=== PATIENT | male | born 2000 | race Caucasian/White ===

== ENCOUNTER 2019-01-27 19:32 | Emergency (ER) | payer MEDICAID ==
--- NOTE | 2019-01-27 19:52 | ERPHSYRPT ---
- History of Present Illness Time Seen by Provider: 01/27/19 19:50 Historian: patient, family Exam Limitations: no limitations Physician History: 19 y/o white male presents with 2 day h/o worsening runny nose, congestion, cough and sore throat. denies cp, denies n/v and abd pain. pt did have loose stools yesterday. sig other had similar sx last week. felt chills but did not measure temperature Timing/Duration: day(s) (2) Activities at Onset: none Severity of Pain-Max: mild Severity of Pain-Current: mild Modifying Factors: Improves With: coughing Associated Symptoms: diarrhea, fever/chills (chills), weakness (mild), No chest pain, No loss of appetite, No nausea, No shortness of breath, No vomiting Previous symptoms: no prior history Allergies/Adverse Reactions: Penicillins Allergy (Mild, Verified 04/25/16 09:40) Hives Home Medications: No Home Meds [No Home Meds] 1 ea UD 04/25/16 [History] Hx Tetanus, Diphtheria Vaccination/Date Given: Yes Hx Influenza Vaccination/Date Given: No Hx Pneumococcal Vaccination/Date Given: No - Review of Systems Constitutional: Chills Eyes: No Symptoms Ears, Nose, & Throat: No Symptoms Respiratory: Cough Cardiac: No Symptoms Abdominal/Gastrointestinal: No Symptoms Genitourinary Symptoms: No Symptoms Musculoskeletal: No Symptoms Skin: No Symptoms Neurological: No Symptoms Psychological: No Symptoms Endocrine: No Symptoms Hematologic/Lymphatic: No Symptoms Immunological/Allergic: No Symptoms All Other Systems: Reviewed and Negative - Past Medical History Pertinent Past Medical History: Yes Neurological History: No Pertinent History ENT History: No Pertinent History Cardiac History: No Pertinent History Respiratory History: No Pertinent History Endocrine Medical History: No Pertinent History Musculoskeletal History: No Pertinent History GI Medical History: No Pertinent History History: No Pertinent History Psycho-Social History: Other Male Reproductive Disorders: No Pertinent History Other Medical History: ADHD - Past Surgical History Past Surgical History: No Neuro Surgical History: No Pertinent History Cardiac: No Pertinent History Respiratory: No Pertinent History Gastrointestinal: No Pertinent History Genitourinary: No Pertinent History Musculoskeletal: No Pertinent History Male Surgical History: No Pertinent History Other Surgical History: toe nail removed - Social History Smoking Status: Current some day smoker Exposure to second hand smoke: Yes Drug Use: none Patient Lives Alone: No - Nursing Vital Signs Nursing Vital Signs: Initial Vital Signs Temperature 98.6 F 01/27/19 19:43 Pulse Rate 98 H 01/27/19 19:43 Respiratory Rate 18 01/27/19 19:43 Blood Pressure 134/80 01/27/19 19:43 O2 Sat by Pulse Oximetry 100 01/27/19 19:43 Pain Scale Pain Intensity 7 - Physical Exam General Appearance: no apparent distress, alert, anxiety Eye Exam: PERRL/EOMI Ears, Nose, Throat Exam: TMs normal, moist mucous membranes, pharyngeal erythema (mild) Neck Exam: normal inspection, non-tender, supple, full range of motion Respiratory Exam: normal breath sounds, lungs clear, airway intact, No chest tenderness, No respiratory distress Cardiovascular Exam: regular rate/rhythm, normal heart sounds, normal peripheral pulses Gastrointestinal/Abdomen Exam: No tenderness Rectal Exam: not done Back Exam: normal inspection, normal range of motion, No CVA tenderness, No vertebral tenderness Extremity Exam: normal inspection, normal range of motion, pelvis stable Neurologic Exam: alert, oriented x 3, cooperative, senior analyst developer II-XII nml as tested Skin Exam: normal color, warm, dry Lymphatic Exam: No adenopathy SpO2 Interpretation: normal O2 Delivery: Room Air - Course Nursing assessment & vital signs reviewed: Yes Ordered Tests: Medication Summary Discontinued Medications Generic Name Dose Route Start Last Admin Trade Name Allq PRN Reason Stop Dose Admin Ondansetron HCl 4 mg 01/27/19 19:53 01/27/19 20:00 Zofran Odt 4 Mg PO 01/27/19 19:54 4 mg STAT ONE Administration Ondansetron HCl Confirm 01/27/19 19:59 Zofran Odt 4 Mg Administered 01/27/19 20:00 Dose 4 mg .ROUTE .STK-MED ONE Lab/Rad Data: Laboratory Results 01/27/19 Range/Units 20:20 Influenza Type A Ag NEGATIVE (NEGATIVE) Influenza Type B Ag NEGATIVE (NEGATIVE) RSV (PCR) NEGATIVE (Negative) - Progress Progress: unchanged Progress Note: 01/27/19 21:02 xray right knee-no acute fx or dislocation Counseled pt/family regarding: diagnosis, need for follow-up, rad results - Departure Departure Disposition: Home Clinical Impression: Right knee sprain Condition: Stable Critical Care Time: No Referrals: DOCTOR,NO FAMILY [Primary Care Provider] - [facility]THO - [facility] [NON-STAFF PHY W/O PRIVILEGES] - [facility]-Ortho M-F [id number] (right knee pain for 3 weeks. negative plain film xray) Additional Instructions: follow up at [facility] at 0800 tomorrow morning for further management
[2019-01-27] MEDS ORDERED: ZOFRAN ODT 4 MG PO ONE (19:53)
[2019-01-27 19:55] VITALS: O2SAT 100
[2019-01-27] MEDS ORDERED: ZOFRAN ODT 4 MG ONE (19:59)
[2019-01-27 20:50] LABS: INFLUENZA A NEGATIVE (NEGATIVE); INFLUENZA B NEGATIVE (NEGATIVE); RESPIRATORY SYNCTIAL VIRUS NEGATIVE (Negative)
[2019-01-27] MEDS ORDERED: PERCOCET TABLET 5/325MG PO STA (21:08)
[2019-01-27] MEDS ORDERED: NORCO 5/325 MG PO ONE (21:09)
[2019-01-27 21:17] VITALS: BP 128/76; PULSE 75
[2019-01-27] MEDS ORDERED: HYDROCODONE-ACETAMIN 2.5-108/5 ML SOLUTION PO STA (21:31)
[2019-01-27] MEDS ORDERED: DELTASONE 10 MG PO ONE (21:31)
[2019-01-27] MEDS ORDERED: Zithromax 250 MG TABLET PO ONE (21:31)
[2019-01-27] MEDS ORDERED: HYDROCODONE-ACETAMIN 2.5-108/5 ML SOLUTION ONE (21:36)
[2019-01-27] MEDS ORDERED: Zithromax 250 MG TABLET ONE (21:36)
[2019-01-27] MEDS ORDERED: DELTASONE 20 MG ONE (21:36)
== END 2019-01-27 21:56 | disposition home or self-care (01) ==
LOC: ED 19:32
DX: J40 Bronchitis, not specified as acute or chronic (principal)
CPT/HCPCS: 87631; 99284; Q0162; A9270-GY

== ENCOUNTER 2019-03-13 17:53 | Emergency (ER) | payer MEDICAID ==
--- NOTE | 2019-03-13 18:16 | ERPHSYRPT ---
- History of Present Illness Time Seen by Provider: 03/13/19 18:16 Source: patient, family Exam Limitations: no limitations Patient Subjective Stated Complaint: states sore throat and cough for two days. Triage Nursing Assessment: ambulated to room per self. skin w/d, color normal, resp easy. occasional dry cough noted. Physician History: 19 y/o white male smoker of cigarettes presents with 2 day h/o sore throat and productive cough. pt denies fever. pt states he is allergic to pcn but has had keflex in the past without issues per his spouse. had a single episode of diarrhea yesterday none today. pt denies cp, denies soa, denies abd pain Timing/Duration: day(s) Cough Quality/Degree: productive cough (brownish green sputum) Possible Cause: occasional episodes Modifying Factors: Improves With: coughing Associated Symptoms: cough, No fever, No chills, No chest pain/soreness Allergies/Adverse Reactions: Penicillins Allergy (Mild, Verified 03/13/19 18:06) Hives Home Medications: Albuterol Sulfate [Albuterol Sulfate Hfa] 7 gm IH UD 03/13/19 [History] Hx Tetanus, Diphtheria Vaccination/Date Given: No Hx Influenza Vaccination/Date Given: No Hx Pneumococcal Vaccination/Date Given: No - Review of Systems Constitutional: No Symptoms Eyes: No Symptoms Ears, Nose, & Throat: No Symptoms Respiratory: Cough, No Dyspnea, No Stridor, No Wheezing Cardiac: No Symptoms Abdominal/Gastrointestinal: No Symptoms Genitourinary Symptoms: No Symptoms Musculoskeletal: No Symptoms Skin: No Symptoms Neurological: No Symptoms Psychological: No Symptoms Endocrine: No Symptoms Hematologic/Lymphatic: No Symptoms Immunological/Allergic: No Symptoms All Other Systems: Reviewed and Negative - Past Medical History Pertinent Past Medical History: Yes Neurological History: No Pertinent History ENT History: No Pertinent History Cardiac History: No Pertinent History Respiratory History: Asthma Endocrine Medical History: No Pertinent History Musculoskeletal History: No Pertinent History GI Medical History: No Pertinent History History: No Pertinent History Psycho-Social History: Other Male Reproductive Disorders: No Pertinent History Other Medical History: ADHD - Past Surgical History Past Surgical History: Yes Neuro Surgical History: No Pertinent History Cardiac: No Pertinent History Respiratory: No Pertinent History Gastrointestinal: No Pertinent History Genitourinary: No Pertinent History Musculoskeletal: No Pertinent History Male Surgical History: No Pertinent History Other Surgical History: toe nail removed - Social History Smoking Status: Current every day smoker How long have you smoked: 7 Exposure to second hand smoke: Yes Drug Use: none Patient Lives Alone: No - Nursing Vital Signs Nursing Vital Signs: Initial Vital Signs Temperature 98.3 F 03/13/19 18:01 Pulse Rate 103 H 03/13/19 18:01 Respiratory Rate 16 03/13/19 18:01 Blood Pressure 148/81 03/13/19 18:01 O2 Sat by Pulse Oximetry 99 03/13/19 18:01 Pain Scale Pain Intensity 6 - Physical Exam General Appearance: no apparent distress, alert, anxiety Eye Exam: PERRL/EOMI, eyes nml inspection Ears, Nose, Throat Exam: normal ENT inspection, moist mucous membranes Neck Exam: normal inspection, non-tender, supple, full range of motion Respiratory Exam: normal breath sounds, lungs clear, airway intact, No chest tenderness, No respiratory distress Cardiovascular Exam: regular rate/rhythm, normal heart sounds, normal peripheral pulses Gastrointestinal/Abdomen Exam: soft, normal bowel sounds, No tenderness Rectal Exam: not done Back Exam: normal inspection, normal range of motion, No CVA tenderness Extremity Exam: normal inspection, normal range of motion, pelvis stable Neurologic Exam: alert, oriented x 3, cooperative, service station attendant II-XII nml as tested Skin Exam: normal color, warm, dry Lymphatic Exam: No adenopathy SpO2 Interpretation: normal SpO2: 99 O2 Delivery: Room Air - Course Nursing assessment & vital signs reviewed: Yes EKG Interpreted by Me: RATE (94), Sinus Rhythm, NORMAL AXIS, NORMAL INTERVALS, NORMAL QRS, Other (no acute changes. no changes from comparison ekg dated ) Ordered Tests: Medication Summary Discontinued Medications Generic Name Dose Route Start Last Admin Trade Name Allq PRN Reason Stop Dose Admin Hydrocodone Bitart/Acetaminophen 10 ml 03/13/19 18:53 Hydrocodone-Acetamin 2.5-108/5 Ml Solution PO 03/13/19 18:54 STAT STA Hydrocodone Bitart/Acetaminophen Confirm 03/13/19 19:07 Hydrocodone-Acetamin 2.5-108/5 Ml Solution Administered 03/13/19 19:08 Dose 10 ml .ROUTE .STK-MED ONE Ceftriaxone Sodium 1,000 mg 03/13/19 18:52 Rocephin 1000 Mg Inj IM 03/13/19 18:53 STAT ONE Ceftriaxone Sodium Confirm 03/13/19 19:07 Rocephin 1000 Mg Inj Administered 03/13/19 19:08 Dose 1,000 mg .ROUTE .STK-MED ONE Lidocaine HCl Confirm 03/13/19 19:07 Xylocaine 1% Hcl 20 Ml Mdv Administered 03/13/19 19:08 Dose 3 ml .ROUTE .STK-MED ONE Methylprednisolone Sodium Succinate 125 mg 03/13/19 18:52 Solu-Medrol 125 Mg IM 03/13/19 18:53 STAT ONE Methylprednisolone Sodium Succinate Confirm 03/13/19 19:07 Solu-Medrol 125 Mg Administered 03/13/19 19:08 Dose 125 mg .ROUTE .STK-MED ONE Lab/Rad Data: Laboratory Results 03/13/19 Range/Units Unknown Influenza Type A Ag NEGATIVE (NEGATIVE) Influenza Type B Ag NEGATIVE (NEGATIVE) RSV (PCR) NEGATIVE (Negative) Group A Strep Antibody NEGATIVE (NEGATIVE) - Progress Progress: improved Air Movement: good Blood Culture(s) Obtained: No Antibiotics given: Yes Counseled pt/family regarding: lab results, diagnosis, need for follow-up - Departure Departure Disposition: Home Clinical Impression: Bronchitis Condition: Stable Critical Care Time: No Referrals: DOCTOR,NO FAMILY [Primary Care Provider] - Additional Instructions: avoid exposure to smoke of any kind. drink plenty of fluids. Prescriptions: Azithromycin 250 mg [Zithromax 250 MG TABLET] 250 mg PO ZPACK #6 tablet Hydrocodone Bit/Acetaminophen [Hydrocodone-Acetaminophen Soln] 10 ml PO Q8H #60 ml Prednisone 10 mg [Deltasone 10 mg] 10 mg PO TID #6 tablet
[2019-03-13] MEDS ORDERED: Rocephin 1000 MG INJ IM ONE (18:52)
[2019-03-13] MEDS ORDERED: solu-MEDROL 125 MG IM ONE (18:52)
[2019-03-13] MEDS ORDERED: HYDROCODONE-ACETAMIN 2.5-108/5 ML SOLUTION PO STA (18:53)
[2019-03-13] MEDS ORDERED: XYLOCAINE 1% HCL 20 ML MDV ONE (19:07)
[2019-03-13] MEDS ORDERED: solu-MEDROL 125 MG ONE (19:07)
[2019-03-13] MEDS ORDERED: HYDROCODONE-ACETAMIN 2.5-108/5 ML SOLUTION ONE (19:07)
[2019-03-13] MEDS ORDERED: Rocephin 1000 MG INJ ONE (19:07)
[2019-03-13 19:13] LABS: Group A Strep NEGATIVE (NEGATIVE); INFLUENZA A NEGATIVE (NEGATIVE); INFLUENZA B NEGATIVE (NEGATIVE); RESPIRATORY SYNCTIAL VIRUS NEGATIVE (Negative)
[2019-03-13 19:19] VITALS: O2SAT 99
[2019-03-13 19:25] VITALS: BP 122/73; PULSE 85
== END 2019-03-13 19:33 | disposition home or self-care (01) ==
LOC: ED 17:53
DX: J40 Bronchitis, not specified as acute or chronic (principal)
CPT/HCPCS: 87631; 87651; 96372; 99284; J0696; J2930; A9270-GY

== ENCOUNTER 2019-04-13 18:45 | Emergency (ER) | payer MEDICAID ==
--- NOTE | 2019-04-13 18:55 | ERPHSYRPT ---
- History of Present Illness Time Seen by Provider: 04/13/19 18:55 Historian: patient Exam Limitations: no limitations Physician History: 19 y/o white male presents with intermittent ruq abd pain. has associated n/v and worsening pain today. pt states seems to be related to food intake. no cp, no fevers, no back pain Timing/Duration: week(s), intermittent Quality: aching Abdominal Pain Onset Location: RUQ Pain Radiation: no radiation Severity of Pain-Max: mild Severity of Pain-Current: mild Modifying Factors: Improves With: eating Associated Symptoms: nausea, No diarrhea, No fever/chills, No loss of appetite, No neck pain, No vomiting Previous symptoms: same symptoms as today Allergies/Adverse Reactions: Penicillins Allergy (Mild, Verified 04/13/19 18:56) Hives Hx Tetanus, Diphtheria Vaccination/Date Given: No Hx Influenza Vaccination/Date Given: No Hx Pneumococcal Vaccination/Date Given: No - Review of Systems Constitutional: No Symptoms Eyes: No Symptoms Ears, Nose, & Throat: No Symptoms Respiratory: No Symptoms Cardiac: No Symptoms Abdominal/Gastrointestinal: Abdominal Pain, Nausea, No Vomiting, No Diarrhea Genitourinary Symptoms: No Symptoms Musculoskeletal: No Symptoms Skin: No Symptoms Neurological: No Symptoms Psychological: No Symptoms Endocrine: No Symptoms Hematologic/Lymphatic: No Symptoms Immunological/Allergic: No Symptoms All Other Systems: Reviewed and Negative - Past Medical History Pertinent Past Medical History: Yes Neurological History: No Pertinent History ENT History: No Pertinent History Cardiac History: No Pertinent History Respiratory History: Asthma Endocrine Medical History: No Pertinent History Musculoskeletal History: No Pertinent History GI Medical History: No Pertinent History History: No Pertinent History Psycho-Social History: Other Male Reproductive Disorders: No Pertinent History Other Medical History: ADHD - Past Surgical History Past Surgical History: Yes Neuro Surgical History: No Pertinent History Cardiac: No Pertinent History Respiratory: No Pertinent History Gastrointestinal: No Pertinent History Genitourinary: No Pertinent History Musculoskeletal: No Pertinent History Male Surgical History: No Pertinent History Other Surgical History: toe nail removed - Social History Smoking Status: Current every day smoker How long have you smoked: 7 Exposure to second hand smoke: Yes Drug Use: none Patient Lives Alone: No - Nursing Vital Signs Nursing Vital Signs: Initial Vital Signs Temperature 98.0 F 04/13/19 18:57 Pulse Rate 101 H 04/13/19 18:57 Respiratory Rate 18 04/13/19 18:57 Blood Pressure 133/84 04/13/19 18:57 O2 Sat by Pulse Oximetry 99 04/13/19 18:57 Pain Scale Pain Intensity 8 - Physical Exam General Appearance: no apparent distress, alert, anxiety Eye Exam: PERRL/EOMI, eyes nml inspection Ears, Nose, Throat Exam: normal ENT inspection, moist mucous membranes Neck Exam: normal inspection, non-tender, supple, full range of motion Respiratory Exam: normal breath sounds, lungs clear, airway intact, No chest tenderness, No respiratory distress Cardiovascular Exam: regular rate/rhythm, normal heart sounds, normal peripheral pulses Gastrointestinal/Abdomen Exam: soft, normal bowel sounds, tenderness (mild ruq) , No guarding Rectal Exam: not done Neurologic Exam: alert, oriented x 3, cooperative, investigator vice II-XII nml as tested Skin Exam: normal color, warm, dry Lymphatic Exam: No adenopathy SpO2 Interpretation: normal O2 Delivery: Room Air - Course Nursing assessment & vital signs reviewed: Yes Ordered Tests: Active Orders 24 hr Category Date Time Status IV Insertion STAT Care 04/13/19 19:04 Active AMYLASE Stat Lab 04/13/19 19:10 Completed CBC W DIFF Stat Lab 04/13/19 19:10 Completed CMP Stat Lab 04/13/19 19:10 Completed LIPASE Stat Lab 04/13/19 19:10 Completed Lactic Acid Stat Lab 04/13/19 19:40 Completed UA W/RFX UR CULTURE Stat Lab 04/13/19 19:26 Completed Medication Summary Generic Name Dose Route Start Last Admin Trade Name Freq PRN Reason Stop Dose Admin Sodium Chloride 1,000 mls @ 999 mls/hr 04/13/19 19:04 04/13/19 19:15 Sodium Chloride 0.9% 1000 Ml IV 04/13/19 20:04 999 mls/hr .[id number] STA Administration Discontinued Medications Generic Name Dose Route Start Last Admin Trade Name Freq PRN Reason Stop Dose Admin Sodium Chloride Confirm 04/13/19 19:13 Sodium Chloride 0.9% 1000 Ml Administered 04/13/19 19:14 Dose 1,000 mls @ ud .ROUTE .STK-MED ONE Ondansetron HCl 4 mg 04/13/19 19:04 04/13/19 19:15 Zofran 4 Mg/2 Ml Vial IV 04/13/19 19:05 4 mg STAT ONE Administration Ondansetron HCl Confirm 04/13/19 19:13 Zofran 4 Mg/2 Ml Vial Administered 04/13/19 19:14 Dose 4 mg .ROUTE .STK-MED ONE Lab/Rad Data: Laboratory Result Diagrams 04/13/19 19:10 04/13/19 19:10 Laboratory Results 04/13/19 04/13/19 04/13/19 Range/Units 19:40 19:26 19:10 WBC (4.0-10.5) K/mm3 RBC (4.1-5.6) M/mm3 Hgb (12.5-18.0) gm/dl Hct (42-50) % MCV (78-100) fl MCH (26-32) pg MCHC (32-36) g/dl RDW (11.5-14.0) % Plt Count (150-450) K/mm3 MPV (6-9.5) fl Gran % (36.0-66.0) % Eos # (Auto) (0-0.5) Absolute Lymphs (auto) (1.0-4.6) Absolute Monos (auto) (0.0-1.3) Lymphocytes % (24.0-44.0) % Monocytes % (0.0-12.0) % Eosinophils % (0.00-5.0) % Basophils % (0.0-0.4) % Absolute Granulocytes (1.4-6.9) Basophils # (0-0.4) Sodium 141 (137-145) mmol/L Potassium 3.4 L (3.5-5.1) mmol/L Chloride 104 (98-107) mmol/L Carbon Dioxide 30 (22-30) mmol/L Anion Gap 9.9 (5-15) MEQ/L BUN 15 (9-20) mg/dL Creatinine 0.90 (0.66-1.25) mg/dL Estimated GFR > 60.0 ML/MIN Glucose 106 (74-106) mg/dL Lactic Acid 0.8 (0.4-2.0) Calcium 9.6 (8.4-10.2) mg/dL Total Bilirubin 0.40 (0.2-1.3) mg/dL AST 33 (17-59) U/L ALT 29 (0-50) U/L Alkaline Phosphatase 86 (38-126) U/L Serum Total Protein 7.4 (6.3-8.2) g/dL Albumin 4.4 (3.5-5.0) g/dL Amylase 70 (30-110) U/L Lipase 21 L (23-300) U/L Urine Color YELLOW (YELLOW) Urine Appearance CLEAR (CLEAR) Urine pH 6.0 (5-6) Ur Specific Byron 1.028 (1.005-1.025) Urine Protein NEGATIVE (Negative) Urine Ketones NEGATIVE (NEGATIVE) Urine Blood NEGATIVE (0-5) Sin/ul Urine Nitrite NEGATIVE (NEGATIVE) Urine Bilirubin NEGATIVE (NEGATIVE) Urine Urobilinogen 4 (0-1) mg/dL Ur Leukocyte Esterase NEGATIVE (NEGATIVE) Urine WBC (Auto) NONE (0-5) /HPF Urine RBC (Auto) NONE (0-2) /HPF U Epithel Cells (Auto) NONE (FEW) /HPF Urine Bacteria (Auto) NONE SEEN (NEGATIVE) /HPF Urine Mucus (Auto) SLIGHT (NEGATIVE) /HPF Urine Culture Reflexed NO (NO) Urine Glucose NEGATIVE (NEGATIVE) mg/dL 04/13/19 Range/Units 19:10 WBC 5.2 (4.0-10.5) K/mm3 RBC 4.58 (4.1-5.6) M/mm3 Hgb 15.4 (12.5-18.0) gm/dl Hct 43.6 (42-50) % MCV 95.2 (78-100) fl MCH 33.6 H (26-32) pg MCHC 35.3 (32-36) g/dl RDW 12.4 (11.5-14.0) % Plt Count 219 (150-450) K/mm3 MPV 8.6 (6-9.5) fl Gran % 39.6 (36.0-66.0) % Eos # (Auto) 0.24 (0-0.5) Absolute Lymphs (auto) 2.37 (1.0-4.6) Absolute Monos (auto) 0.52 (0.0-1.3) Lymphocytes % 45.4 H (24.0-44.0) % Monocytes % 10.0 (0.0-12.0) % Eosinophils % 4.6 (0.00-5.0) % Basophils % 0.4 (0.0-0.4) % Absolute Granulocytes 2.07 (1.4-6.9) Basophils # 0.02 (0-0.4) Sodium (137-145) mmol/L Potassium (3.5-5.1) mmol/L Chloride (98-107) mmol/L Carbon Dioxide (22-30) mmol/L Anion Gap (5-15) MEQ/L BUN (9-20) mg/dL Creatinine (0.66-1.25) mg/dL Estimated GFR ML/MIN Glucose (74-106) mg/dL Lactic Acid (0.4-2.0) Calcium (8.4-10.2) mg/dL Total Bilirubin (0.2-1.3) mg/dL AST (17-59) U/L ALT (0-50) U/L Alkaline Phosphatase (38-126) U/L Serum Total Protein (6.3-8.2) g/dL Albumin (3.5-5.0) g/dL Amylase (30-110) U/L Lipase (23-300) U/L Urine Color (YELLOW) Urine Appearance (CLEAR) Urine pH (5-6) Ur Specific Byron (1.005-1.025) Urine Protein (Negative) Urine Ketones (NEGATIVE) Urine Blood (0-5) Sin/ul Urine Nitrite (NEGATIVE) Urine Bilirubin (NEGATIVE) Urine Urobilinogen (0-1) mg/dL Ur Leukocyte Esterase (NEGATIVE) Urine WBC (Auto) (0-5) /HPF Urine RBC (Auto) (0-2) /HPF U Epithel Cells (Auto) (FEW) /HPF Urine Bacteria (Auto) (NEGATIVE) /HPF Urine Mucus (Auto) (NEGATIVE) /HPF Urine Culture Reflexed (NO) Urine Glucose (NEGATIVE) mg/dL - Progress Progress: improved Counseled pt/family regarding: lab results, diagnosis, need for follow-up - Departure Departure Disposition: Home Clinical Impression: RUQ abdominal pain Condition: Stable Critical Care Time: No Referrals: DOCTOR,NO FAMILY [Primary Care Provider] - Additional Instructions: drink plenty of fluids. avoid fatty, greasy spicy foods. follow up with primary doctor for further management
[2019-04-13] MEDS ORDERED: Sodium Chloride 0.9% 1000 ML 1,000 ML IV STA (19:04)
[2019-04-13] MEDS ORDERED: Zofran 4 MG/2 ML VIAL IV ONE (19:04)
[2019-04-13] MEDS ORDERED: Sodium Chloride 0.9% 1000 ML 1,000 ML ONE (19:13)
[2019-04-13] MEDS ORDERED: Zofran 4 MG/2 ML VIAL ONE (19:13)
[2019-04-13 19:16] LABS: Absolute Neutrophil Ct (ANC) 2.07 (1.4-6.9); BASOPHIL % 0.4 % (0.0-0.4); Basophil (Absolute #) 0.02 (0-0.4); Eosinophil % 4.6 % (0.00-5.0); Eosinophil (Absolute #) 0.24 (0-0.5); Hematocrit 43.6 % (42-50); Hemoglobin 15.4 gm/dl (12.5-18.0); Lymphocyte (Absolute #) 2.37 (1.0-4.6); Lymphocytes % 45.4 % (24.0-44.0); Mean Cell Volume 95.2 fl (78-100); Mean Corpuscular Hemoglobin 33.6 pg (26-32); Mean Corpuscular Hgb Concent. 35.3 g/dl (32-36); Mean Platelet Volume 8.6 fl (6-9.5); Monocyte (Absolute #) 0.52 (0.0-1.3); Neutrophil % 39.6 % (36.0-66.0); Platelet Count 219 K/mm3 (150-450); Red Blood Count 4.58 M/mm3 (4.1-5.6); Red Cell Distribution Width 12.4 % (11.5-14.0); White Blood Count 5.2 K/mm3 (4.0-10.5)
[2019-04-13 19:32] LABS: Appearance CLEAR (CLEAR); Bilirubin NEGATIVE (NEGATIVE); Blood NEGATIVE Ery/ul (0-5); Glucose NEGATIVE (NEGATIVE); Ketones NEGATIVE (NEGATIVE); Leukocyte Esterase NEGATIVE (NEGATIVE); Mucus SLIGHT /HPF (NEGATIVE); Nitrite NEGATIVE (NEGATIVE); Protein,Urine Dip NEGATIVE (Negative); Specific Gravity 1.028 (1.005-1.025); Urobilinogen 4 mg/dL (0-1)
[2019-04-13 19:34] LABS: ALBUMIN 4.4 g/dL (3.5-5.0); ALKALINE PHOSPHATASE 86 U/L (38-126); AMYLASE 70 U/L (30-110); ANION GAP 9.9 MEQ/L (5-15); BLOOD UREA NITROGEN 15 mg/dL (9-20); CHLORIDE 104 mmol/L (98-107); Calcium 9.6 mg/dL (8.4-10.2); Carbon Dioxide 30 mmol/L (22-30); Glucose 106 mg/dL (74-106); LIPASE 21 U/L (23-300); Potassium 3.4 mmol/L (3.5-5.1); SGOT/AST 33 U/L (17-59); SGPT/ALT 29 U/L (0-50); SODIUM 141 mmol/L (137-145); Total Protein 7.4 g/dL (6.3-8.2)
[2019-04-13 19:49] LABS: Bacteria NONE SEEN /HPF (NEGATIVE)
[2019-04-13 20:10] VITALS: BP 119/61; PULSE 81; O2SAT 98
== END 2019-04-13 20:08 | disposition home or self-care (01) ==
LOC: ED 18:45
DX: R10.11 Right upper quadrant pain (principal); R11.10 Vomiting, unspecified; R11.2 Nausea with vomiting, unspecified
CPT/HCPCS: 36000; 36415; 80053; 81001; 82150; 83605; 83690; 85025; 96374; 99284; J2405

== ENCOUNTER 2022-01-15 11:27 | Emergency (ER) | payer MEDICAID, OTHER ==
--- NOTE | 2022-01-15 11:30 | ERPHSYRPT ---
- History of Present Illness Time Seen by Provider: 01/15/22 11:30 Source: patient Exam Limitations: no limitations Physician History: This is a right handed white male patient with a history of ADHD and asthma and presents to the emergency department approxi-1 hour after being bitten superficially by family dog that has its immunization status up-to-date. Patient is not diabetic. Patient was bit on the left forearm. Patient states that he is allergic to amoxicillin. Timing/Duration: today Quality: painful Severity: mild Location: extremities (Left forearm volar aspect) Possible Causes: other (Dog bite) Associated Symptoms: denies symptoms Allergies/Adverse Reactions: Penicillins Allergy (Mild, Verified 04/13/19 18:56) Hives Hx Tetanus, Diphtheria Vaccination/Date Given: No Hx Influenza Vaccination/Date Given: No Hx Pneumococcal Vaccination/Date Given: No Travel Risk - International Travel Have you traveled outside of the country in past 3 weeks: No - Coronavirus Screening Are you exhibiting any of the following symptoms?: No Close contact with a COVID-19 positive Pt in past 14-21 Days: No - Review of Systems Constitutional: No Symptoms Eyes: No Symptoms Ears, Nose, & Throat: No Symptoms Respiratory: No Symptoms Cardiac: No Symptoms Abdominal/Gastrointestinal: No Symptoms Genitourinary Symptoms: No Symptoms Musculoskeletal: No Symptoms Skin: Other (Multiple superficial dog bites volar aspect left forearm. No active bleeding.) Neurological: No Symptoms Psychological: No Symptoms Endocrine: No Symptoms Hematologic/Lymphatic: No Symptoms Immunological/Allergic: No Symptoms All Other Systems: Reviewed and Negative - Past Medical History Pertinent Past Medical History: Yes Neurological History: No Pertinent History ENT History: No Pertinent History Cardiac History: No Pertinent History Respiratory History: Asthma Endocrine Medical History: No Pertinent History Musculoskeletal History: No Pertinent History GI Medical History: No Pertinent History History: No Pertinent History Psycho-Social History: Other Male Reproductive Disorders: No Pertinent History Other Medical History: ADHD - Past Surgical History Past Surgical History: Yes Neuro Surgical History: No Pertinent History Cardiac: No Pertinent History Respiratory: No Pertinent History Gastrointestinal: No Pertinent History Genitourinary: No Pertinent History Musculoskeletal: No Pertinent History Male Surgical History: No Pertinent History Other Surgical History: toe nail removed - Social History Smoking Status: Current every day smoker How long have you smoked: 7 Exposure to second hand smoke: Yes Drug Use: none Patient Lives Alone: No - Nursing Vital Signs Nursing Vital Signs: Initial Vital Signs Temperature 99.1 F 01/15/22 11:35 Pulse Rate 99 H 01/15/22 11:35 Respiratory Rate 20 01/15/22 11:35 Blood Pressure 144/88 01/15/22 11:35 O2 Sat by Pulse Oximetry 98 01/15/22 11:35 Pain Scale Pain Intensity 9 - Physical Exam General Appearance: no apparent distress, alert, anxiety Eye Exam: PERRL/EOMI, eyes nml inspection Ears, Nose, Throat Exam: normal ENT inspection, moist mucous membranes Neck Exam: normal inspection, non-tender, supple, full range of motion Respiratory Exam: airway intact, No chest tenderness, No respiratory distress Gastrointestinal/Abdomen Exam: No tenderness Rectal Exam: not done Back Exam: normal inspection, normal range of motion, No CVA tenderness, No vertebral tenderness Extremity Exam: normal range of motion, pelvis stable, tenderness (Volar aspect left forearm in the sites of superficial dog bites) Skin Exam: other (Superficial dog bites, multiple, volar aspect left forearm. No active bleeding. No foreign bodies present) SpO2 Interpretation: normal O2 Delivery: Room Air - Course Nursing assessment & vital signs reviewed: Yes - Progress Progress: unchanged Counseled pt/family regarding: diagnosis, need for follow-up - Departure Departure Disposition: Home Clinical Impression: Dog bite of left forearm Condition: Stable Critical Care Time: No Referrals: DOCTOR,NO FAMILY [Primary Care Provider] - Follow up/PCP as directed Additional Instructions: Keep the dog bite sites clean daily with soap and water. Do not use lotions ointments or creams to the site. Cover the sites with bandage. Take your antibiotics as prescribed. Follow-up with your primary care provider for further evaluation and management. Prescriptions: Doxycycline Hyclate 100 mg [Vibramycin 100 MG] 100 mg PO BID #14 tab
[2022-01-15 11:39] VITALS: BP 144/88; PULSE 99; O2SAT 98
== END 2022-01-15 12:28 | disposition home or self-care (01) ==
LOC: ED 11:27
DX: S50.872A Other superficial bite of left forearm, initial encounter (principal); W54.0XXA Bitten by dog, initial encounter; Z72.0 Tobacco use
CPT/HCPCS: 99281